=== PATIENT | female | born 1935 | race Caucasian/White ===

== ENCOUNTER 2018-12-12 10:15 | Inpatient (IN) ==
[2018-12-12] MEDS ORDERED: MORPHINE IV ONE (11:03)
[2018-12-12] MEDS ORDERED: NS 500 ML IV ONE ×2 (11:03→14:22)
[2018-12-12] MEDS ORDERED: ZOFRAN IV ONE (11:03)
--- NOTE | 2018-12-12 11:17 | PROVIDER DOCUMENTATION ---
HPI-Abdominal Pain/GI Problem - General Chief Complaint: Abdominal Pain Stated Complaint: abd pain Time Seen by Provider: 12/12/18 10:41 Source: patient Allergies/Adverse Reactions: Patient Allergies Allergy/AdvReac Type Severity Reaction Status Date / Time No Known Allergies Allergy Verified 12/12/18 10:35 Home Medications: Home Medication List Medication Instructions Recorded Confirmed Last Taken Type Balsalazide [Colazal] 750 mg PO BID 12/12/18 12/12/18 12/12/18 10:35 History Dicyclomine [Bentyl] 10 mg PO BID 12/12/18 12/12/18 12/12/18 10:37 History - History of Present Illness-ABD Nature of Presenting Problems: Patient is an 83 yowf who arrived via EMS with complaints of generalized abdominal cramping and n/v that began this morning. Denies fever or any other symptoms. Last BM: this morning Dark Stools Present?: reports: none noticed. denies: black, tarry, bright red blood Rectal Bleeding: reports: none Review of Systems - Adult - REVIEW OF SYSTEMS - ADULT Constitutional: reports: no symptoms reported. denies: chills, fever Eyes: reports: no symptoms reported Ears, Nose, Mouth & Throat: reports: no symptoms reported Cardiovascular: reports: no symptoms reported Respiratory: reports: no symptoms reported Gastrointestinal: reports: see HPI, abdominal pain, nausea, vomiting. denies: hematemesis, constipation, diarrhea, rectal bleeding Genitourinary: reports: no symptoms reported Musculoskeletal: reports: no symptoms reported Integumentary: reports: no symptoms reported Neurological: reports: no symptoms reported Psychiatric: reports: no symptoms reported Endocrine: reports: no symptoms reported Hematologic/Lymphatic: reports: no symptoms reported Allergic/Immunologic: reports: no symptoms reported All Other Systems: Reviewed and Negative Past History - Adult - PAST MEDICAL HISTORY-ADULT Review of Records: reports: Nursing Assessment Review, Medications Reviewed, Social history reviewed & non-contributory. Major Childhood Illnesses: reports: denies history Cardiovascular: reports: denies history Respiratory: reports: denies history Gastrointestinal: reports: colitis Obstetrical/Gynecological: reports: denies history Genitourinary: reports: denies history Musculoskeletal: reports: denies history Neurological: reports: denies history Psychiatric: reports: denies history Endocrine/Immune: reports: denies history Other Conditions: reports: denies history - PRIOR SURGERIES/PROCEDURES Surgical/Procedure History: reports: reviewed, not pertinent - FAMILY HISTORY Family History: reviewed, not pertinent - SOCIAL HISTORY Smoking: non-smoker Physical Exam-General - PHYSICAL EXAM-ADULT Initial Vital Signs Reviewed: Yes - CONSTITUTIONAL General Appearance: alert, moderate distress (Actively vomiting). negative: lethargic, slow to respond - EYES Eyes: PERRL/EOMI, pink conjunctivae - HEAD, EARS, NOSE, MOUTH & THROAT HENMT: normocephalic/atraumatic, moist mucous membranes - NECK Neck: non-tender, full range of motion, supple, normal inspection - RESPIRATORY Respiratory: chest non-tender, lungs clear, normal breath sounds, no pleuratic chest pain, no respiratory distress, no accessory muscle use - CARDIOVASCULAR Cardiovascular: normal peripheral pulses, regular rate, rhythm, no gallop, no murmur - GASTROINTESTINAL (ABDOMEN) Abdominal Exam: normal bowel sounds, soft, no organomegaly, no pulsatile mass, tenderness (Diffuse). negative: distended, guarding, rigid, rebound, hernia, mass, hepatomegaly, splenomegaly - MUSCULOSKELETAL Back Exam: normal inspection Extremity: normal range of motion, non-tender, normal gait, normal inspection - SKIN Integumentary: normal color, warm/dry. negative: cyanosis, diaphoresis, jaundice, mottled, pallor - NEUROLOGIC Neurologic: grossly normal, no motor/sensory deficits - PSYCHIATRIC Psych/Mental Status: normal mood/affect, normal thought content, normal thought process, oriented x 3 Progress - PLAN OF CARE/RESULTS Progress/Plan/Lab Results: Vital Signs - 8 hr 12/12/18 10:27 Temperature 98.5 F Pulse Rate 55 L Respiratory Rate 18 Blood Pressure 172/105 O2 Sat by Pulse Oximetry 100 Orders Category Date Time Status CT ABDOMEN/PELVIS W/O CONTRAST [CT] Stat Exams 12/12/18 11:02 Ordered AMYLASE [CHEM] Stat Lab 12/12/18 11:02 Uncollected CBC WITH DIFF [HEME] Stat Lab 12/12/18 11:02 Ordered COMPREHENSIVE METABOLIC PANEL [CHEM] Stat Lab 12/12/18 11:02 Uncollected LACTATE, PLASMA [CHEM] Stat Lab 12/12/18 11:02 Uncollected LIPASE [CHEM] Stat Lab 12/12/18 11:02 Uncollected TROPONIN T Stat Lab 12/12/18 11:02 Ordered UA NIMS W/REFLEX CULT [URINALYSIS] Stat Lab 12/12/18 11:02 Uncollected 0.9% Sodium Chloride Inj [Ns] 500 ml Med 12/12/18 11:03 Active IV 999 mls/hr Morphine Med 12/12/18 11:03 Discontinued 4 mg IV NOW ONE Ondansetron [Zofran] Med 12/12/18 11:03 Discontinued 4 mg IV NOW ONE EKG [EKG] Stat Ther 12/12/18 11:02 Ordered 1305- Dr. Smith paged. 1329- Dr. Gloria paged. Pt in agreement with admission plan. States she has not vomited since meds, spoke with Dr. Gloria who states to hold NG tube at this time. Result Diagrams: 12/12/18 11:30 12/12/18 11:30 - EKG 1 Time of EKG reading by physician:: 12:42 EKG Read and Signed by:: Colni Sanford EKG Interpretation (*Must complete 3 of following elements*): Abnormal Rate: 59 Rhythm: sinus bradycardia QRS: normal ST Wave: normal - CT/MRI 1 CT Study: Abdomen, Pelvis (IMPRESSION: Enteritis with at least a partial small bowel obstruction This exam was performed using automated exposure control, adjustment of mA or kV according to patient size, and/or use of iterative reconstruction technique. Electronically signed by Franklyn Tanner 12/12/2018 12:21 PM) - CONSULTS/PCP/HOSPITALIST Notification #1 *Consult/PCP/Hospitalist*: Dr. Smith Time Discussed: 13:16 Reason/Comments: SBO Consult Disposition: Admit ( states to admit to [facility]PS.) #2 Consult: Dr. Yap Time Discussed: 14:06 Reason/Comments: enteritis Consult Disposition: other (states he will see pt) #3 Consult: Dr. Gloria Time Discussed: 14:10 Reason/Comments: admission- enteritis and partial bowel obstruction Consult Disposition: Admit ( states he will see pt later this afternoon. Asked that I place orders for blood cultures, IV Rocephin, stool for occult blood, and to hold NG tube at this time.) Departure - Departure Date of Disposition Decision: 12/12/18 Time of Disposition Decision: 13:30 DIAGNOSIS: Enteritis Bowel obstruction Qualifiers: Intestinal obstruction type: unspecified Intestinal obstruction extent: partial Qualified Code(s): K56.600 - Partial intestinal obstruction, unspecified as to cause Disposition: ADMITTED INPATIENT 09 Certified Medical Emergency: Emergent Condition: Stable Referrals and Follow-Ups: Darinel Gloria Jr, MD [Primary Care Provider] - - Critical Care Note This patient required my direct & personal management of CC.: No Attestation - Physician/ QAMAR Attestation Patient care was provided by Advanced Practice Provider:: Yes Advanced Practice Provider:: Flaco Gong Advanced Practice Provider documentation review:: The Mid-level provider documentation, treatment plan and medical decision making was reviewed by the physician who agrees with all treatment and medical decision making by the MLP. The physician spent face to face time with patient:: No Advanced Practice Provider documentation review:: Supervising physician onsite and consulted in the evaluation and care of this patient. The physician did not have a face to face encounter with the patient.
[2018-12-12 12:04] LABS: AGAP 14; ALB/GLOB RATIO 1.7; ALBUMIN 4.3 g/dL (3.5-5.0); ALKALINE PHOSPHATASE 72 U/L (32-104); AMYLASE 36 U/L (20-200); BASO# 0.01 X1000 (0.0-0.2); BASO% 0.1 % (0.0-0.8); BUN 20 mg/dL (8-22); CALCIUM 9.2 mg/dL (8.8-10.2); CHLORIDE 100 mmol/L (98-107); COSMO 284; CREATININE 0.8 mg/dL (0.5-0.9); EOS# 0.02 X1000 (0.0-0.7); EOS% 0.2 % (0.0-10.0); ESTIMATED GFR > 60; GLUCOSE 163 mg/dL (70-104); GOT 17 U/L (10-30); GPT 11 U/L (10-36); HEMATOCRIT 40.8 % (37.0-47.0); HEMOGLOBIN 13.9 g/dL (12.0-16.0); IMM GRAN# 0.02 X1000 (0.0-0.04); IMM GRAN% 0.2 % (0.0-0.5); LIPASE 14 U/L (13-60); LYMPH# 0.75 X1000 (1.2-3.4); LYMPH% 6.1 % (20.5-51.1); MCH 31.7 PG (27-31); MCHC 34.1 g/dL (33-37); MCV 93.2 FL (81-99); MONO# 0.53 X1000 (0.11-0.59); MONO% 4.3 % (1.7-9.3); MPV 11.5 FL (7.4-10.4); NEUT# 11.05 X1000 (1.4-6.5); NEUT% 89.1 % (42.2-75.2); PLT 188 X1000 (130-400); POTASSIUM 3.9 mmol/L (3.5-5.1); RBC 4.38 XMIL (4.2-5.4); RDW 12.9 % (11.5-14.5); SODIUM 139 mmol/L (136-145); TCO2 25 mmol/L (25-35); TOTAL BILIRUBIN 0.51 mg/dL (0.20-1.00); TOTAL PROTEIN 6.9 g/dL (6.3-8.3); WBC 12.38 X1000 (4.8-10.8)
--- NOTE | 2018-12-12 12:23 | Diag Imaging Result Doc PS360 ---
EXAM: CT ABDOMEN/PELVIS W/O CONTRAST HISTORY: generalized abd pain, n/v TECHNIQUE: CT abdomen and pelvis without contrast COMPARISON: 12/24/2010 FINDINGS: No calcified gallstones or adjacent inflammation. No focal hepatic abnormality identified on this noncontrasted exam. Spleen is not enlarged. Normal pancreas and adrenal glands. No renal stones. No hydronephrosis. Normal aorta. There is small bowel wall thickening with adjacent inflammation in the mid pelvis. Feculent material within multiple small bowel loops. There are scattered colonic diverticula. The urinary bladder is distended and is normal. Uterus has been removed. The bones are osteopenic. Mild scoliosis with prominent degenerative changes. IMPRESSION: Enteritis with at least a partial small bowel obstruction This exam was performed using automated exposure control, adjustment of mA or kV according to patient size, and/or use of iterative reconstruction technique. Electronically signed by Franklyn Tanner 12/12/2018 12:21 PM
--- NOTE | 2018-12-12 12:30 | EKG Report ---
Test Performed on : 12/12/2018 12:23:10 PM Test Reason : abdominal pain Blood Pressure : / mmHG Vent. Rate : 059 BPM Atrial Rate : 059 BPM P-R Int : 156 ms QRS Dur : 076 ms QT Int : 466 ms P-R-T Axes : 070 040 043 degrees QTc Int : 461 ms Sinus bradycardia. Nonspecific T wave abnormality Abnormal ECG No previous ECGs available Unconfirmed Result
[2018-12-12 14:11] LABS: URINE SOURCE CLEAN CATCH
[2018-12-12 14:22] LABS: BILIRUBIN URINE NEGATIVE (NEGATIVE); BLOOD URINE SMALL (NEGATIVE); COLOR YELLOW; GLUCOSE URINE 100 mg/dL (NEGATIVE); KETONE URINE 10 mg/dL (NEGATIVE); LEUKOCYTES URINE NEGATIVE (NEGATIVE); NITRITE URINE NEGATIVE (NEGATIVE); PH URINE 7.5; PROTEIN URINE NEGATIVE (NEGATIVE); SP GRAVITY URINE 1.011; TURBIDITY URINE CLEAR (CLEAR); UROBILINOGEN URINE NORMAL (NORMAL)
[2018-12-12] MEDS ORDERED: ROCEPHIN 1 GM in NS 50 ML IV ONE (14:22)
[2018-12-12 14:23] LABS: UR EPITHELIAL CELLS <10 /HPF (<10); URINE BACTERIA NEGATIVE /HPF; URINE WBC <10 /HPF (<10)
[2018-12-12] MEDS ORDERED: NS 1,000 ML IV ONE (14:27)
[2018-12-12] MEDS ORDERED: ZOFRAN IV PRN (14:30)
--- NOTE | 2018-12-12 15:38 | ED EKG INTERP ---
This chart was entered by Cassy Villeda Scribe, acting as scribe for Colin Sanford MD. EKG Interpretation - EKG Time of EKG reading by physician:: 12:42 EKG Read and Signed by:: Colin Sanford EKG Interpretation (*Must complete 3 of following elements*): Abnormal Rate: 59 Rhythm: sinus bradycardia QRS: normal ST Wave: non-specific ST changes Attestation - Physician/ QAMAR Attestation Patient care was provided by Advanced Practice Provider:: No The physician spent face to face time with patient:: Yes Advanced Practice Provider documentation review:: Supervising physician onsite and consulted in the evaluation and care of this patient. The physician did have a face to face encounter with the patient. This chart was documented by the indicated scribe, (Cassy Villeda Scribe) and accurately reflects the services I performed and decisions made by me, Colin Sanford MD, as attested by the provider's signature.
[2018-12-12] MEDS: MORPHINE IV PRN ×2 (15:41→22:13)
[2018-12-12] MEDS: NS 1,000 ML IV SCH (16:06)
[2018-12-12] MEDS ORDERED: BLISTEX MEDICATED BERRY LIP BALM TOP PRN (16:30)
--- NOTE | 2018-12-12 17:21 | HISTORY AND PHYSICAL ---
CHIEF COMPLAINT: Abdominal pain. PRESENT ILLNESS: The patient is an 83-year-old, white female who presents with abdominal pain that started this morning. Initially, was very mild and then became much more severe. She has had a history of ulcerative colitis versus irritable bowel syndrome in the past. She came in the emergency room, and was having pain, nausea. Was given something for the nausea and the pain and is feeling somewhat better. CT scan of the abdomen and pelvis did show an enteritis with at least a partial small bowel obstruction. White count 12,380, hemoglobin 13.9, hematocrit 40.8. Other lab work is essentially normal. Blood cultures are pending. FAMILY HISTORY: She has 2 daughters in good health. She has had a pacemaker placement. Has had a total hysterectomy that was done abdominally. REVIEW OF SYSTEMS: Neurological: Denies headaches, seizures, visual problems, hearing problems. Pulmonary: Denies cough, wheezing, dyspnea. Cardiovascular: Denies chest pain, heart palpitations, PND, orthopnea. GI: Has had 3 bowel movements today that were normal, but has had abdominal pain with nausea. : Denies any difficulty with urination. Musculoskeletal: Denies any joint pain or muscle pain. Has had no injuries. Psychiatric: Denies depression or anxiety. PHYSICAL EXAMINATION: VITAL SIGNS: Blood pressure 178/63, respirations 22, pulse 65, oxygen saturation is 98%. HEENT: She is normocephalic. EOMS intact. PERRLA. Throat clear. Fundi benign. NECK: Supple without lymphadenopathy, carotid bruits. LUNGS: Are clear to auscultation and percussion without rhonchi, rales, or wheezes. HEART: Regular rate and rhythm without murmurs, gallops, or friction rubs. ABDOMEN: Soft. Active bowel sounds with mild generalized tenderness. At this point, she has already had something for pain it is my understanding. PELVIC EXAM: Deferred. BREAST EXAM: Deferred. RECTAL: Exam deferred. INTEGUMENT: Shows no lesions consistent with melanoma, other skin cancers. LYMPHATIC: Lymph nodes are nonpalpable in the cervical, supraclavicular areas. NEUROLOGICAL: Cranial nerves 2-12 intact grossly. Sensory and motor intact. Reflexes 1+ all. ASSESSMENT: 1. Abdominal pain. 2. Small bowel obstruction. 3. Enteritis. PLAN: Surgery and GI have both been consulted and we will start on IV antibiotics and IV fluids. We will keep him n.p.o. cc: Darinel Gloria Jr, MD
--- NOTE | 2018-12-12 18:23 | GENERAL SURGERY CONSULTATION ---
DATE: 12/12/2018 REQUESTING PHYSICIAN: Hospitalist service. REASON FOR CONSULTATION: Bowel obstruction. HISTORY OF PRESENT ILLNESS: An 83-year-old female who is presenting with generalized abdominal pain, nausea, vomiting that began the morning of presentation. She denies any other change in her bowel habits and actually had a bowel movement the morning of presentation multiple times. She described the cramping has been intermittent. She had a CT scan done in the emergency department that showed a bowel obstruction, some focal enteritis. She denies any kind of change in her eating habit or eating new foods. PAST MEDICAL HISTORY: Includes history of colitis. PAST SURGICAL HISTORY: Includes 1. Hysterectomy. 2. Carpal tunnel. 3. Pacemaker. SOCIAL HISTORY: Nonsmoker. FAMILY HISTORY: Reviewed with the patient and noncontributory. ALLERGIES: None. HOME MEDICATIONS: Include 1. Colazal. 2. Bentyl. REVIEW OF SYSTEMS: A full 10 point review of systems obtained, negative except as specified in HPI. PHYSICAL EXAMINATION: Vital Signs: The patient is currently afebrile. Her vital signs are stable. General: No acute distress. HEENT: Normocephalic, atraumatic. Pupils equal, round, reactive to light. Mucous membranes moist. Oropharynx benign. Neck: Supple. Trachea midline. Cardiovascular: Regular rate and rhythm. Lungs: Grossly clear. Abdomen: Soft, nondistended. Really no tenderness at this time. No peritoneal signs. No guarding. Extremities: Moves all extremities. Neurologic: Grossly intact. Skin: No signs of jaundice. Vascular: All extremities perfused. LABORATORY DATA: White blood cell count slightly elevated at 12, hematocrit 40, platelet count 188,000. Remainder of labs reviewed and essentially within normal limits, but slightly elevated plasma lactate at 2.7. CT scan independently reviewed and radiology report reviewed and noted above. ASSESSMENT AND PLAN: An 83-year-old female with enteritis and partial small- bowel obstruction. 1. Enteritis with partial small-bowel obstruction. At this time, the patient seems to be comfortable. She does have a focal area of enteritis. Differential could be viral, bacterial, or even all low-flow ischemic since she does have an elevated lactic acid. Clinically, she looks okay right now. She is on antibiotics. I would be inclined to monitor for right now and if any clinical change occurs, may consider diagnostic laparoscopy to evaluate the bowel, but again if the patient continues to have improvement I may just monitor. She will likely need a colonoscopy as an outpatient. 2. Multiple medical comorbidities currently being managed by her primary care physician. cc: MD Darinel Johnson Jr, MD MTDD
[2018-12-12] MEDS: ROCEPHIN 1 GM in NS 50 ML IV SCH (21:41)
[2018-12-13] MEDS: NS 1,000 ML IV SCH ×2 (02:23→13:35)
[2018-12-13 06:42] LABS: HEMATOCRIT 41.5 % (37.0-47.0); HEMOGLOBIN 14.1 g/dL (12.0-16.0); IMM GRAN# 0.02 X1000 (0.0-0.04); IMM GRAN% 0.2 % (0.0-0.5); LYMPH# 0.95 X1000 (1.2-3.4); LYMPH% 8.4 % (20.5-51.1); MCH 31.5 PG (27-31); MCV 92.8 FL (81-99); MONO# 0.72 X1000 (0.11-0.59); MONO% 6.3 % (1.7-9.3); MPV 11.7 FL (7.4-10.4); NEUT# 9.68 X1000 (1.4-6.5); NEUT% 85.1 % (42.2-75.2); PLT 192 X1000 (130-400); RBC 4.47 XMIL (4.2-5.4); RDW 13.1 % (11.5-14.5); WBC 11.37 X1000 (4.8-10.8)
[2018-12-13 07:01] LABS: AGAP 10; BUN 14 mg/dL (8-22); CALCIUM 8.7 mg/dL (8.8-10.2); CHLORIDE 103 mmol/L (98-107); COSMO 274; CREATININE 0.6 mg/dL (0.5-0.9); ESTIMATED GFR > 60; GLUCOSE 130 mg/dL (70-104); POTASSIUM 3.7 mmol/L (3.5-5.1); SODIUM 136 mmol/L (136-145); TCO2 23 mmol/L (25-35)
[2018-12-13 07:36] LABS: BANDS 1 % (0-1); LYMPHS 15 % (21-51); MONO 3 % (1-9); SEGS 81 % (42-75)
[2018-12-13] MEDS: ROCEPHIN 1 GM in NS 50 ML IV SCH ×2 (10:00→20:33)
--- NOTE | 2018-12-13 10:13 | PROGRESS NOTE ---
DATE: 12/13/2018 SUBJECTIVE: The patient says she is feeling better. Around 2 or 3 o'clock this morning, she did get nauseated and asked for something for nausea, and did have a little bit more pain and got something for pain apparently. She is feeling better now. OBJECTIVE: Blood pressure is 127/56, respirations 16, pulse 69, temperature 98.2 degrees Fahrenheit. HEENT: She is normocephalic. EOMs intact. PERRLA. Throat clear. Lungs: Clear to auscultation and percussion without rhonchi, rales, or wheezes. Heart: Regular rate and rhythm without murmurs, gallops, or friction rubs. Abdomen: Soft, with very little tenderness at this point. She has some active bowel sounds. Neurological: Examination intact grossly. White count is down to 11,370, hemoglobin 14.1, hematocrit 41.5. Electrolytes essentially normal. BUN and creatinine normal. ASSESSMENT: 1. Enteritis. 2. Partial small bowel obstruction. PLAN: We will continue IV antibiotics. I appreciate help from surgery, Dr. Smith, and a consult has been put in for Dr. Britton, gastroenterology. cc: Darinel Gloria Jr, MD
--- NOTE | 2018-12-13 11:19 | GENERAL SURGERY PROGRESS NOTE ---
DATE: 12/13/2018 SUBJECTIVE: Patient seems to be doing okay, although she had a little bit of nausea and some abdominal pain last night. Overall, it sounds like she is doing better. She is not currently hurting. OBJECTIVE: Vital Signs: The patient is currently afebrile. Her vital signs are stable. General Examination: No acute distress. HEENT: Normocephalic, atraumatic. Pupils equal, round, reactive to light. Mucous membranes moist. Oropharynx benign. Neck: Supple. Trachea midline. Cardiovascular: Regular rate and rhythm. Lungs: Grossly clear. Abdomen: Soft, nondistended, nontender at this time. No peritoneal signs. Extremities: Moves all extremities. Neurologic: Grossly intact. Skin: No signs of jaundice. Vascular: All extremities perfused. Laboratory: None this morning as of yet. ASSESSMENT AND PLAN: An 83-year-old with enteritis, partial small-bowel obstruction. Enteritis with partial small bowel obstruction. At this time, the patient seems to be doing well and comfortable. She did have an episode of nausea and some abdominal pain, so we will keep her nothing per oral for right now. Clinically, I do not think she has any kind of ischemic bowel but would like to continue to monitor. If she does have any kind of change in her overall clinical status, we will just consider a diagnostic laparoscopy. Otherwise, continue current treatment. cc: MD Darinel Johnson Jr, MD
--- NOTE | 2018-12-13 11:30 | Diag Imaging Result Doc PS360 ---
FLAT/UPRIGHT ABD/1 VIEW CHEST - 12/13/2018 INDICATION: sbo TECHNIQUE: COMPARISON: 12/12/2018 FINDINGS: The chest is clear. There is a left-sided pacemaker in good position. There is a nonobstructive bowel gas pattern. No free air or abnormal calcifications. IMPRESSION: No acute disease. Electronically signed by Juancarlos Garcia 12/13/2018 11:28 AM
--- NOTE | 2018-12-13 21:42 | GASTROENTEROLOGY CONSULTATION ---
DATE: 12/13/2018 REASON FOR CONSULTATION: Abdominal pain. HISTORY OF PRESENT ILLNESS: This is an 83-year-old female who reports with abdominal pain starting the day of admission on 12/12/2018. She had been getting ready to go to her daughter's. Her grandchild was graduating from high school. She was going to stay at her daughter's house after the graduation. She had been getting her things together and suddenly felt bad. She went into the house and felt like she needed to have a bowel movement. She states she had a normal bowel movement but reported diaphoresis and abdominal pain. She felt like she might pass out. She called her daughter and an ambulance was called. On evaluation, she had a CT scan of the abdomen and pelvis that showed enteritis with at least a partial small bowel obstruction. Patient has been held NPO. She is starting to feel better. She did have an episode of vomiting x2 yesterday and then 1 episode of vomiting last night. She had denied fever. She normally has a bowel movement daily. She takes a 1/4 teaspoon of MiraLAX daily. Her last colonoscopy by our report was in 2014 that showed 3 small polyps in the rectosigmoid junction that were ablated and diverticulosis. She does have a history of ulcerative colitis in the past and has been on Colazal medication for many years. Her last colonoscopy was done in 2014 with no evidence of colitis. We have not seen her in the office since 2014. She does have a daughter that has ulcerative colitis. PAST MEDICAL HISTORY: History of ulcerative colitis. ALLERGIES: No known drug allergies. HOME MEDICATIONS: She does have Colazal 750 mg twice a day listed and Bentyl 10 mg twice a day. No other medications are listed. FAMILY HISTORY: She has 2 daughters, 1 daughter is a patient of ours and also has ulcerative colitis. PAST SURGICAL HISTORY: Hysterectomy. PHYSICAL EXAM: Vital signs: Temperature 98.4 degrees, pulse 66, respirations 19, blood pressure 126/56. General: Patient is awake and alert in no acute distress. HEENT: Normocephalic, atraumatic. Pupils equal, round, reactive to light. Sclerae nonicteric. Cardiovascular: Regular rate and rhythm. Respiratory: Lung sounds essentially clear. Abdomen: Soft with some mild tenderness otherwise positive bowel sounds. Extremities: No lower extremity edema noted. Neurologic: Cranial nerves 2-12 grossly intact. LABORATORY: Hematology. WBC 11.37, hemoglobin 14.1, hematocrit 41.5, MCV 92.8, platelet 192,000. Chemistry. Sodium 136, potassium 3.7, chloride 103, CO2 of 23, BUN 14, creatinine 0.6, glucose 130, calcium 8.7. IMAGING: Abdominal pelvis CT scan showed enteritis with at least partial small bowel obstruction. ASSESSMENT AND PLAN: 1. Abdominal pain. 2. Nausea and vomiting. 3. Enteritis. 4. Partial small bowel obstruction. Patient has been held NPO. Her abdominal pain has improved. We will allow sips of water and ice chips as tolerated. Continue antibiotic. Patient has been seen by [facility], Dr. Smith. Patient may need small bowel follow through for further evaluation. If her symptoms do not improve she may require exploratory laparotomy. Will continue to monitor with symptomatic treatment and supportive care and further plans to be made according to her progress. Patient was also seen by Dr. Britton. Dictated by JEREMIAH Alfaro for Nathaniel Britton MD cc: JEREMIAH Salas MD Roger H. Moss Jr, MD MTDD
[2018-12-14] MEDS: NS 1,000 ML IV SCH ×2 (01:24→13:28)
[2018-12-14 06:31] LABS: BASO# 0.01 X1000 (0.0-0.2); BASO% 0.1 % (0.0-0.8); EOS# 0.01 X1000 (0.0-0.7); EOS% 0.1 % (0.0-10.0); HEMATOCRIT 41.7 % (37.0-47.0); HEMOGLOBIN 14.2 g/dL (12.0-16.0); LYMPH# 1.38 X1000 (1.2-3.4); LYMPH% 16.2 % (20.5-51.1); MCH 31.6 PG (27-31); MCHC 34.1 g/dL (33-37); MCV 92.7 FL (81-99); MONO# 0.67 X1000 (0.11-0.59); MONO% 7.9 % (1.7-9.3); MPV 11.5 FL (7.4-10.4); NEUT# 6.44 X1000 (1.4-6.5); NEUT% 75.7 % (42.2-75.2); PLT 182 X1000 (130-400); RDW 13.3 % (11.5-14.5); WBC 8.51 X1000 (4.8-10.8)
[2018-12-14 07:02] LABS: AGAP 10; BUN 11 mg/dL (8-22); CALCIUM 8.4 mg/dL (8.8-10.2); CHLORIDE 104 mmol/L (98-107); COSMO 277; CREATININE 0.6 mg/dL (0.5-0.9); ESTIMATED GFR > 60; GLUCOSE 107 mg/dL (70-104); SODIUM 139 mmol/L (136-145); TCO2 25 mmol/L (25-35)
[2018-12-14] MEDS: ROCEPHIN 1 GM in NS 50 ML IV SCH ×2 (08:40→21:39)
--- NOTE | 2018-12-14 08:41 | GENERAL SURGERY PROGRESS NOTE ---
DATE: 12/14/2018 SUBJECTIVE: Patient seems to be doing okay. She did not have any episodes of pain. She did not have any episodes of dysphagia, pain last night or nausea. She is having bowel movements. OBJECTIVE: Vital Signs: Patient is currently afebrile. Her vital signs are stable. General: No acute distress. HEENT: Normocephalic, atraumatic. Pupils equal, round, reactive to light. Mucous membranes moist. Oropharynx benign. Neck: Supple. Trachea midline. Cardiovascular: Regular rate and rhythm. Lungs: Grossly clear. Abdomen: Soft, nontender, nondistended. Extremities: Moves all extremities. Neurologic: Grossly intact. Skin: No signs of jaundice. Vascular: All extremities perfused. LABORATORY: None this morning as of yet. Reviewed from yesterday, white blood cell count is improving. ASSESSMENT AND PLAN: An 83-year-old female with enteritis and partial small bowel obstruction. Enteritis and partial small bowel obstruction. At this time I think at least the bowel obstruction is improving. Will put her on a clear liquid diet. I discussed her case with Dr. Britton. May consider doing a small bowel series in the near future, but will defer to Dr. Britton at this point. Continue supportive care. No immediate plans for surgical intervention. cc: MD Darinel Johnson Jr, MD
--- NOTE | 2018-12-14 09:18 | PROGRESS NOTE ---
DATE: 12/14/2018 SUBJECTIVE: The patient says she is feeling better. She has not been having much pain. Nausea has seemed to go away. OBJECTIVE: Objective white count is 8510 which is much improved. Hemoglobin 14.2, electrolytes essentially normal.Vital Signs: Show blood pressure is 117/86, respirations 18, temperature 98.4 degrees Fahrenheit. Oxygen saturation on room air is 95%. HEENT: She is normocephalic. EOMS intact. PERRLA. Throat clear. Lungs: Clear to auscultation and percussion without rhonchi, rales, or wheezes. Heart: Regular rate and rhythm without murmurs, gallops, or friction rubs. Abdomen: Soft with active bowel sounds. No organomegaly or tenderness at this point, so it has improved. Neurologic: Exam intact grossly. IMAGING: Abdominal films yesterday appeared normal. She has been started on some clear liquids. We will see how she does today and continue to watch. ASSESSMENT: 1. Enteritis. 2. Small bowel obstruction. PLAN: Continue to observe. Continue IV antibiotics. cc: Darinel Gloria Jr, MD
--- NOTE | 2018-12-14 19:42 | GASTROENTEROLOGY PROGRESS NOTE ---
DATE: 12/14/2018 SUBJECTIVE: The patient states she is feeling better. She has had a bowel movement. She does have a history of colitis and is currently taking Colazal daily. OBJECTIVE: Vital signs: Temperature 98.1 degrees, pulse 66, respirations 18, blood pressure 118/55. Generally the patient is awake and alert, in no acute distress. She is sitting in a chair. LABORATORY DATA: Hematology: WBC 8.51, hemoglobin 14.7, hematocrit 41.7, MCV 92.7, platelets 182,000. Chemistry: Sodium 139, potassium 4.0, chloride 104, CO2 is 25, BUN 11, creatinine 0.6, glucose 107. ASSESSMENT AND PLAN: 1. Enteritis. 2. Partial small-bowel obstruction. Her symptoms are improving. We will continue current management. We will order a small bowel follow through for further evaluation. I have discussed this case with Dr. Britton. Dictated by JEREMIAH Alfaro for Nathaniel Britton MD cc: JEREMIAH Salas MD Roger H. Moss Jr, MD MTDD
[2018-12-15] MEDS: NS 1,000 ML IV SCH ×3 (04:36→14:50)
[2018-12-15 06:26] LABS: BASO# 0.04 X1000 (0.0-0.2); BASO% 0.6 % (0.0-0.8); EOS% 1.6 % (0.0-10.0); HEMATOCRIT 39.9 % (37.0-47.0); HEMOGLOBIN 13.3 g/dL (12.0-16.0); LYMPH# 1.46 X1000 (1.2-3.4); LYMPH% 23.7 % (20.5-51.1); MCH 31.7 PG (27-31); MCHC 33.3 g/dL (33-37); MCV 95.2 FL (81-99); MONO# 0.56 X1000 (0.11-0.59); MONO% 9.1 % (1.7-9.3); MPV 11.5 FL (7.4-10.4); NEUT# 4.01 X1000 (1.4-6.5); PLT 162 X1000 (130-400); RBC 4.19 XMIL (4.2-5.4); RDW 13.2 % (11.5-14.5); WBC 6.17 X1000 (4.8-10.8)
[2018-12-15 07:12] LABS: AGAP 9; BUN 8 mg/dL (8-22); CALCIUM 8.1 mg/dL (8.8-10.2); CHLORIDE 103 mmol/L (98-107); COSMO 280; CREATININE 0.6 mg/dL (0.5-0.9); ESTIMATED GFR > 60; GLUCOSE 97 mg/dL (70-104); POTASSIUM 3.3 mmol/L (3.5-5.1); SODIUM 141 mmol/L (136-145); TCO2 29 mmol/L (25-35)
--- NOTE | 2018-12-15 09:01 | GENERAL SURGERY PROGRESS NOTE ---
DATE: 12/15/2018 SUBJECTIVE: Patient seems to be doing okay. She tolerated her liquids. She does have a small bowel series ordered for today. OBJECTIVE: Vital Signs: Patient is currently afebrile. Her vital signs are stable. General exam: No acute distress. HEENT: Normocephalic, atraumatic. Pupils equal, round, reactive to light. Mucous membranes moist. Oropharynx benign. Neck: Supple. Trachea midline. Cardiovascular: Regular rate and rhythm. Lungs: Grossly clear. Abdomen: Soft, nontender, nondistended. Extremities: Moves all extremities. Neurologic: Grossly intact. Skin: No signs of jaundice. Vascular: All extremities perfused. LABORATORY: Reviewed from yesterday, white blood cell count is normal. ASSESSMENT AND PLAN: An 83-year-old female with enteritis and partial small-bowel obstruction. 1. Enteritis with partial small bowel obstruction. At this time, Gastroenterology has ordered a small bowel series. We will follow up with the results. If there is any pathology, may consider diagnostic laparoscopy, but otherwise we will just follow up with the results. If it is essentially normal, we will consider advancing her diet. Overall, I think she is doing okay. cc: MD Darinel Johnson Jr, MD
--- NOTE | 2018-12-15 09:13 | PROGRESS NOTE ---
DATE: 12/15/2018 SUBJECTIVE: The patient says she is feeling better. She has had no nausea or pain. At the time I examined her, she was actually in a wheelchair in the X-ray Department about to get a small-bowel follow-through. OBJECTIVE: Vital Signs: Blood pressure is 118/48, respirations 16, pulse 58, temperature 98.1 degrees Fahrenheit. HEENT: She is normocephalic. EOMS intact. PERRLA. Throat clear. Lungs: Clear to auscultation and percussion without rhonchi, rales or wheezes. Heart: Regular rate and rhythm without murmurs, gallops, or friction rubs. Abdomen: Soft. Active bowel sounds. No organomegaly or tenderness at this point. Neurological exam: Intact grossly. LABS: White count is 6170, hemoglobin 13.3, potassium is slightly low at 3.3. Rest of electrolytes were within normal limits. ASSESSMENT: 1. Partial small bowel obstruction. 2. Enteritis. 3. Mild hypokalemia. PLAN: Await barium swallow. Will give supplemental potassium. cc: Darinel Gloria Jr, MD
[2018-12-15] MEDS: ROCEPHIN 1 GM in NS 50 ML IV SCH ×3 (09:58→23:16)
[2018-12-15] MEDS: POTASSIUM CHLORIDE 40 MEQ in 1/2 NS 250 ML IV SCH ×2 (11:49→17:19)
--- NOTE | 2018-12-15 12:07 | Diag Imaging Result Doc PS360 ---
EXAM: SMALL BOWEL SERIES ONLY 12/15/2018 HISTORY: enteritis, partial small bowel obstruction TECHNIQUE: 12 images, 32 seconds fluoroscopy time, 492.6 cGy. COMMENT: There is no evidence of obstruction or mucosal thickening. There is barium in the colon by one hour and 45 minutes. The terminal ileum is normal in appearance. There is no significant tenderness to palpation. IMPRESSION: Normal study. Electronically signed by Joe Villa 12/15/2018 12:04 PM
[2018-12-16] MEDS: NS 1,000 ML IV SCH (02:36)
--- NOTE | 2018-12-16 04:29 | GASTROENTEROLOGY PROGRESS NOTE ---
DATE: 12/15/2018 SUBJECTIVE: The patient is resting comfortably, she was sitting up in the chair, reading newspaper. She reports no GI symptoms. She has been able to tolerate her diet well. She denies any abdominal pain or abdominal cramps. Her appetite is good, she is eating well. She reports no new symptoms. She has had a bowel movements and also has been passing flatus. OBJECTIVE: Vital signs: Temperature 98.5 degrees, pulse 60 per minute, breathing 18, blood pressure 118/55. Abdomen: Full, soft, nontender. Bowel sounds are audible. LABS: Reviewed, which showed WBC of 6.17, hemoglobin 13.3, hematocrit 39.9, MCV 95.2, platelets were 162. Sodium 141, potassium 3.3, chloride 103, bicarb is 29, BUN is 8, creatinine 0.6. A small-bowel follow-through done this morning showed no evidence of any abnormality or stricture in the small bowel. There was no evidence of any obstruction. IMPRESSION: Partial small-bowel obstruction appears to have resolved. She is asymptomatic. Advised to advance her diet to GI soft diet, and if she can tolerate that she can be discharged to be followed up at the office. She is in the process of getting her potassium supplemented. Once that is done, I think she can go home to be followed up as an outpatient. cc: MD Darinel Arrieta Jr, MD
[2018-12-16 07:28] VITALS: BP 122/53
[2018-12-16] MEDS: ROCEPHIN 1 GM in NS 50 ML IV SCH (08:42)
[2018-12-16 09:14] LABS: AGAP 10; BUN 7 mg/dL (8-22); CALCIUM 8.6 mg/dL (8.8-10.2); CHLORIDE 104 mmol/L (98-107); COSMO 278; CREATININE 0.6 mg/dL (0.5-0.9); ESTIMATED GFR > 60; GLUCOSE 101 mg/dL (70-104); POTASSIUM 3.8 mmol/L (3.5-5.1); SODIUM 140 mmol/L (136-145); TCO2 26 mmol/L (25-35)
--- NOTE | 2018-12-16 10:57 | GENERAL SURGERY PROGRESS NOTE ---
DATE: 12/16/2018 SUBJECTIVE: Patient seems to be doing okay. Her small-bowel series did not seem to show any obstruction. OBJECTIVE: Vital Signs: Patient is currently afebrile. Her vital signs stable. General: No acute distress. HEENT: Normocephalic, atraumatic. Pupils equal, round, reactive to light. Mucous membranes moist. Oropharynx benign. Neck: Supple. Trachea midline. Cardiovascular: Regular rate and rhythm. Lungs: Grossly clear. Abdomen: Soft, nontender, nondistended. Extremities: Moves all extremities. Neurologic: Grossly intact. Skin: No signs of jaundice. Vascular: All extremities perfused. LABORATORY: None this morning as of yet.Imaging: Small-bowel series as noted above. ASSESSMENT/PLAN: 83-year-old with resolving small bowel obstruction, enteritis. 1. Resolving small bowel obstruction and enteritis. At this time the patient tolerated GI soft diet she is having bowel movements. 2. I think it is probably close for her to being able to be discharged. 3. She is to follow up with me and Dr. Castro as an outpatient. cc: MD Darinel Johnson Jr, MD
--- NOTE | 2018-12-16 18:08 | GASTROENTEROLOGY PROGRESS NOTE ---
DATE: 12/16/2018 SUBJECTIVE: The patient is feeling better. She is sitting up in the bed with no acute distress. She states she tolerated advancement in her diet. I believe she will be discharged today. She has had bowel movements. OBJECTIVE: Vital signs: Temperature 97.5 degrees, pulse 56, respirations 16, blood pressure 122/53. Generally, the patient is awake, alert, in no acute distress. LABORATORY DATA: Hematology: WBC 6.17, hemoglobin 13.3, hematocrit 39.9, MCV 95.2, platelets 162,000. Chemistry: Sodium 140, potassium 3.8, chloride 104, CO2 is 26, BUN 7, creatinine 0.6, glucose 101. ASSESSMENT AND PLAN: Partial small-bowel obstruction appears to have resolved. The patient has tolerated a diet. She is having bowel movements. Would recommend she continue MiraLAX daily once discharged. Follow back with us in the office. I have discussed this case with Dr. Britton. Dictated by JEREMIAH Alfaro for Nathaniel Britton MD cc: JEREMIAH Salas MD Roger H. Moss Jr, MD
--- NOTE | 2018-12-17 09:45 | DISCHARGE SUMMARY ---
ADMISSION DATE: 12/12/2018 DISCHARGE DATE: 12/16/2018 FINAL DIAGNOSES: 1. Small bowel obstruction, resolved. 2. Enteritis, resolved. 3. History of ulcerative colitis. 4. Hypokalemia CONSULTATION: 1. Gastroenterology, Dr. Britton. 2. Surgery, Dr. Smith. PRESENT ILLNESS: The patient is an 83-year-old white female, who presented with nausea and abdominal pain. She has had a history of ulcerative colitis versus irritable bowel syndrome. She came to the emergency room. CT scan of the abdomen and pelvis showed enteritis with at least a partial small bowel obstruction. She was placed on IV antibiotics. Her initial white count was 12,380, but is now normal. Hemoglobin 13.9. She got feeling well during her hospitalization fairly quickly. She was made n.p.o. and was placed on Rocephin IV 1 g every 12 hours. Has no symptoms at all now and is tolerating her food. Potassium yesterday was 3.3. I gave her supplementation. We will get a check on her potassium before she leaves. OBJECTIVE: Vital Signs: Blood pressure is 122/53, respirations 16, pulse 56, temperature 97.5 degrees Fahrenheit. HEENT: She is normocephalic. EOMS intact. PERRLA. Throat clear. Lungs: Clear to auscultation and percussion without rhonchi, rales, or wheezes. Heart: Regular rate and rhythm without murmurs, gallops, friction rubs. Abdomen: Soft, with active bowel sounds. No organomegaly or tenderness. Neurological: Exam intact grossly. DISPOSITION: We will discharge home on her regular home medications. We will see her back in the office next week. We will check a chemistry profile at that time and a CBC. She is to have followup with Dr. Britton. cc: Darinel Gloria Jr, MD
== END 2018-12-16 11:50 | disposition home or self-care (01) | DRG 392 ==
LOC: SUPCPDRO → ED 10:15 → 4N 15:39
PROVIDERS: ADMIT Emergency Medicine; ATTEND Emergency Medicine
CPT/HCPCS: 74022; 74176; 74250; 80048; 80053; 81001; 82150; 82270; 83605; 83690; 84484; 85025; 87040; 93005; 96361; 96365; 96375; 99285; A9270; J0696; J2270; J2405; J3480; J7030; J7040